=== PATIENT | female | born 1990 | race Two or more races ===

== ENCOUNTER 2024-09-18 17:08 | Emergency (ER) | payer OTHER ==
[~2024-09-18] VITALS: Ht 165.1 cm; Wt 54.4 kg
[2024-09-18 17:33] LABS: PLATELET COUNT (AUTO) 228 K/uL (179-408); RED BLOOD CELL COUNT(AUTO) 4.92 MIL/uL (3.63-4.92); RED CELL DISTRIBUTION WIDTH 14.7 % (12.3-17.7); WHITE BLOOD COUNT (AUTO) 4.7 K/uL (3.8-11.8)
[2024-09-18] MEDS ORDERED: LORAZEPAM 2 MG/1 ML VIAL ONE (17:45)
[2024-09-18 17:46] LABS: ETHANOL < 3 MG/DL (0-10)
[2024-09-18] MEDS: LORAZEPAM 2 MG/1 ML VIAL IV ONE (17:49)
[2024-09-18 18:04] LABS: CREATININE 0.6 mg/dL (0.6-1.3); SODIUM SERUM 139 mmol/L (136-145); UREA NITROGEN, BLOOD 13 mg/dL (7-18)
[2024-09-18 18:08] LABS: *BILIRUBIN,URIN NEGATIVE (NEGATIVE); *BLOOD, URINE NEGATIVE (NEGATIVE); *CLARITY,URINE CLEAR (CLEAR); *COLOR,URINE YELLOW (YELLOW); *KETONES,URINE NEGATIVE (NEGATIVE); *PROTEIN,URINE NEGATIVE (NEGATIVE); *UROBILINOGEN,URINE 0.2 E.U./dl (NORMAL); LEUKOCYTE ESTERASE ,URINE NEGATIVE (NEGATIVE); NITRITE, URINE NEGATIVE (NEGATIVE); UGLUCOSE NEGATIVE (NEGATIVE)
[2024-09-18 18:12] LABS: *URINE HCG, QUAL NEGATIVE (NEGATIVE)
[2024-09-18 18:19] LABS: ASPARTATE AMINOTRANSFERASE 21 U/L (15-37); TOTAL PROTEIN, SERUM 7.4 g/dL (6.4-8.2)
[2024-09-18 18:23] LABS: *AMPHETAMINE, URINE POSITIVE (NEGATIVE); *BARBITURATE, URINE NEGATIVE (NEGATIVE); *BENZODIAZEPINE, URINE NEGATIVE (NEGATIVE); *CANNABINOID, URINE NEGATIVE (NEGATIVE); *COCCAINE, URINE NEGATIVE (NEGATIVE); *OPIATE, URINE NEGATIVE (NEGATIVE); *PHENCYCLIDINE SCREEN,URINE NEGATIVE (NEGATIVE); FENTANYL, URINE POSITIVE (NEGATIVE)
[2024-09-18] MEDS ORDERED: POTASSIUM BICARBONATE/CIT AC 25 MEQ TABLET.EFF ONE (18:27)
[2024-09-18] MEDS: POTASSIUM BICARBONATE/CIT AC 25 MEQ TABLET.EFF PO ONE (18:31)
[2024-09-19 01:00] VITALS: BP 99/82
[2024-09-19 04:16] VITALS: BP 93/69; O2SAT 98
== END 2024-09-19 04:16 | disposition home or self-care (01) ==
LOC: ER 17:16
DX: F11.10 Opioid abuse, uncomplicated (principal); F15.10 Other stimulant abuse, uncomplicated; J45.909 Unspecified asthma, uncomplicated; R11.0 Nausea; R45.1 Restlessness and agitation
CPT/HCPCS: 80076; 80048; 81003; 84703; 85025; 36415; 93005; 99285; 96374; 80299; 80320; 80307; J2060; A4606; A4663; C1758; G0480